=== PATIENT | female | born 1955 | race Caucasian/White ===

== ENCOUNTER 2019-07-26 19:45 | Emergency (ER) | payer MEDICARE ==
[~2019-07-26] VITALS: Ht 165.1 cm; Wt 90.7 kg
[~2019-07-26 19:45] MED LIST: AMARYL4 MG; COZAAR; GLUCOPHAGE XR500 MG PO; KEFLEX500 MG PO; LEVAQUIN 500 M500 M4 PO; LEVEMIR SC; PROAIR HFA8.5 GM INH; TESSALON PERLE100 MG PO; VICTOZA0.6 MG/0.1; ZOCOR; ZOFRAN ODT4 MG PO
[2019-07-26] MEDS ORDERED: VICTOZA0.6 MG/0.1 SUBQ (20:01)
[2019-07-26] MEDS ORDERED: NOVOLOG FL100 UNIT/M SUBQ ×2 (20:05→20:06)
[2019-07-26 20:07] LABS: URINE BILIRUBIN NEGATIVE (Negative); URINE BLOOD NEGATIVE (Negative); URINE CLARITY CLEAR; URINE COLOR YELLOW; URINE GLUCOSE-RANDOM 3+ (Negative); URINE KETONES NEGATIVE (Negative); URINE LEUKOCYTES-REFLEX NEGATIVE (Negative); URINE NITRITE-REFLEX NEGATIVE (Negative); URINE PROTEIN NEGATIVE (Negative); URINE UROBILINOGEN 0.2 E.U./dl (0.2-1.0)
[2019-07-26 20:23] LABS: ABSOLUTE EOSINOPHILS 0.1 thou/uL (0.0-0.7); ABSOLUTE MONOCYTES 0.7 thou/uL (0.0-1.2); ABSOLUTE NEUTROPHILS 5.9 thou/uL (1.6-8.1); BASOPHILS 0.2 %; EOSINOPHILS 0.8 %; HEMATOCRIT 41.5 % (37.0-47.0); HEMOGLOBIN 13.7 gm/dL (12.0-15.0); LYMPHOCYTES 42.6 %; MCH 27.8 pg (26.0-34.0); MCV 84.3 fL (80.0-100.0); MONOCYTES 6.3 %; NUCLEATED RBCS 0 /100WBC; PLATELET COUNT* 352 thou/uL (150-400); POLYS 50.1 %; RBC 4.92 mil/uL (4.20-5.00); RDW-CV 13.5 % (10.5-14.5); WBC 11.7 thou/uL (4.0-11.0)
[2019-07-26 20:31] LABS: CALCIUM 9.7 mg/dL (8.5-10.1); CREATININE 1.1 mg/dL (0.6-1.3); POTASSIUM 3.7 mmol/L (3.5-5.1)
[2019-07-26 20:35] LABS: ALBUMIN 3.3 g/dL (3.4-5.0); TOTAL BILIRUBIN 0.9 mg/dL (<0.1-1.0); TOTAL PROTEIN 7.4 g/dL (6.4-8.2)
[2019-07-26] MEDS ORDERED: NORCO 5-325 TA1 EAC1 PO (21:58)
[2019-07-26 22:19] VITALS: BP 123/43
--- NOTE | 2019-07-28 14:19 | EKG ---
[place] [address] ELECTROCARDIOGRAM REPORT Name: JAIRO VIGIL Room: [facility]#: [id number] Admission: 07/26/19 Attend Phys: Discharge: 07/26/19 Date of : 51 Report #: [id number] THIS REPORT FOR: //name// [facility] ED Test Date: 2019-07-26 Test Time: 20:04:20 Pat Name: JAIRO VIGIL Department: Room: Gender: F [employer] Operator: RADHA : 1955 Requested By: Kennedi Steele Order Number: [id number] Anupam MD: Kyle Adams Measurements Intervals [place] Rate: 60 P: 49 [place]: 160 QRS: -4 QRSD: 97 T: 2 QT: 406 QTc: 406 Interpretive Statements Sinus rhythm Inferior infarct, old Probable anteroseptal infarct, old Baseline wander in lead(s) III,aVL,aVF,V2,V3,V5,V6 Compared to ECG 02/09/2015 14:18:31 Poor R-wave progression no longer present Ventricular premature complex(es) no longer present Myocardial infarct finding still present Electronically Signed On 07-28-2019 14:18:54 CDT by Kyle Adams [email or web address] <ELECTRONICALLY SIGNED> By: Martina Adams MD, FACC 07/28/19 1418 03 03 Martina Adams MD, [facility] /EPI
== END 2019-07-26 22:22 | disposition home or self-care (01) ==
LOC: M.ERS 19:45
PROVIDERS: Physician Assistant
DX: R10.13 Epigastric pain (principal); R10.11 Right upper quadrant pain; R94.5 Abnormal results of liver function studies; I10 Essential (primary) hypertension; E78.00 Pure hypercholesterolemia, unspecified; E11.9 Type 2 diabetes mellitus without complications; Z79.4 Long term (current) use of insulin